=== PATIENT | female | born 1965 | race African-American/Black ===

== ENCOUNTER 2018-02-06 12:19 | Outpatient (CLI) | payer OTHER, SELFPAY ==
--- NOTE | 2018-02-06 14:10 | RAD ---
3 VIEWS LUMBAR SPINE: Date: 02/06/18 INDICATION: History of disability with lumbar back surgery. FINDINGS: There is postsurgical change of an anterior lumbar interbody fusion at L5-S1. Intervertebral cage and vertebral body screws project in the expected position. There are vascular clips anterior to L5 and S1, likely related to the prior procedure. There is moderate disc degenerative disease at L4-5. No ac ligia fracture or subluxation is evident. IMPRESSION: Postoperative change with mild spondylosis of the lumbar spine. POS: HERMILO
== END 2018-02-06 12:20 | disposition home or self-care (01) ==
LOC: NAV RAD 12:19
PROVIDERS: ATTEND Family Medicine
DX: M54.5 Low back pain (principal); M47.896 Other spondylosis, lumbar region; Z98.890 Other specified postprocedural states
CPT/HCPCS: 72100